=== PATIENT | female | born 1980 | race African-American/Black ===

== ENCOUNTER 2016-10-07 05:11 | Inpatient (IN) ==
[2016-10-07] MEDS ORDERED: Famotidine 20 MG/2 ML VIAL IVP PRN (05:14)
[2016-10-07] MEDS ORDERED: Naloxone 0.4 MG/ML INJ IVP PRN (05:14)
[2016-10-07] MEDS ORDERED: D5% in Lactated Ringers 1,000 ML IVC SCH (05:15)
[2016-10-07] MEDS ORDERED: PENICILLIN POTASSIUM IVPB ONE (05:17)
[2016-10-07] MEDS ORDERED: WATER IVPB ONE (05:17)
[2016-10-07] MEDS ORDERED: D5 IVPB ONE (05:17)
[2016-10-07] MEDS ORDERED: Oxytocin 20 units/ LR 1000 mL 20 UNIT/1,000 ML BAG IVC ONE ×4 (05:33→15:20)
--- NOTE | 2016-10-07 05:45 | OB/GYN History & Physical ---
Date of Encounter: 10/07/16 Time of Encounter: 04:48 Assessment and Plan (1) Active labor at term Current visit: Yes Status: Acute Patient was brought in by EMS with spontaneous rupture of membranes that occurred 10 minutes prior to arrival. Patient actively having abdominal pain, back pain and contractions at 2-3 minutes apart. On examination, patient's cervix was dilated at 7 with 80% effacement and station 0. Patient is multiparous with 4 viable births by spontaneous vaginal delivery. monitoring externally. Preparation and anticipation for spontaneous vaginal delivery. Obtained records from [facility] CHARTER BOAT OPERATOR: Patient is seen by Dr.Richard Javed. Patient was initially uncooperative with staff members and refusing to answer questions pertaining to her and medical history. labs were ordered prior to receiving records as her blood type was unknown and there was no further information available. (2) 38 weeks gestation of Current visit: Yes Status: Acute (3) Tobacco abuse disorder Current visit: Yes Status: Acute Patient currently smokes one half packs per day 18+ years. (4) Hepatitis C antibody positive in blood Current visit: Yes Status: Acute History of Present Illness Chief complaint: Labor HPI: Ms. Lundberg is a 36 year old female at 38 weeks and 6 days with a past medical history of seasonal allergies, Crohn's disease status post partial colectomy, right lower extremity cellulitis, hepatitis C, and AMA status who presents today in active labor. Patient was brought in by EMS with reported spontaneous rupture of membranes occurring 10 minutes prior to arrival to labor and delivery unit at approximately 4:30 patient was awakened by a "wet "sensation. On arrival, patient and bed were soaked with cloudy yellow fluid, and patient reported abdominal pain, back pain, pelvic pressure with contractions at 2-3 minutes apart. Patient was uncooperative with staff refusing to answer questions pertaining to her and medical history. Four live viable births all via spontaneous vaginal delivery without complication. Patient denies history of STDs or any complications with this . LMP: 01/10/2016. OB doctor: Albert Novak NSTs beginning at 36 weeks for AMA. Blood type: A positive. Antibody screen negative. GBS negative Hepatitis B surface antigen negative HIV nonreactive HPV negative Rubella immune Varicella-zoster IgG antibody immune Treponema pallidum nonreactive Chlamydia negative Medications: vitamin and iron tablets, Diclegis. Food allergies: Strawberries No known drug allergies. Patient denies alcohol or illicit drug use. Baby Girl: Ying Med Care Manager: Mitchdelisa Mom plans to bottle feed. Past Med Surg Social Fam HX - Past Medical History Medical history: no medical history Psychiatric history: no psych history - Past Surgical History Surgical History: colectomy - Social History Smoking Status: Current every day smoker Packs per day: 1.5 Smokeless Tobacco Status: No Alcohol use: none Drug use: none - Family History Mother Living Status: Still Living Hx Family Cardiac Disorders: No Hx Family Respiratory Disorders: No Hx Family Cancer: No Hx Family GI Disorders: No Hx Family Genitourinary Disorders: No Hx Family Endocrine Disorder: No Hx Family Musculoskeletal Disorders: No Hx Family Neuromuscular Disorders: No Hx Family Neurologic Disorders: No Hx Family HEENT Disorders: No Hx Family Autoimmune Disorders: No Hx Family Reproductive Disorders: No Hx Family Psychosocial Disorders: No Hx Family Medical Disorders: No Obstetrical History - Pregnancies : 5 Para: 4 Term: 4 : 0 Ab's: 0 Livin Medications and Allergies Formula Tablet 1 tab PO DAILY 10/07/16 [History] Allergies No Known Allergies Allergy (Verified 04/23/15 19:49) Review of System OB - Constitutional Constitutional ROS IM: no anorexia, no chills, no fever(s) - Nose, mouth, and throat Nose, mouth and throat: no nasal congestion, no sinus pressure, no sore throat, no throat swelling, no tongue swelling, no vertigo - Breasts Breasts: no mass, no pain, no skin changes - Cardiovascular Cardiovascular: no chest pain, no chest pain at rest, no claudication, no dyspnea, no lightheadedness, no syncope - Respiratory Respiratory: cough (Chronic dry cough), no dyspnea, no hemoptysis, no wheezing, no chest congestion, no excessive phlegm production, no pain with cough - Gastrointestinal Gastrointestinal: heartburn, nausea, vomiting, other (Crohn's disease status post partial colectomy and left lower quadrant) - Genitourinary Genitourinary: no dysuria, no flank pain, no genital lesions, no genital pruritis, no hematuria - Integumentary Integumentary: other (Right lower extremity distal anterior tibial cellulitis resolving without erythema or edema) - Psychiatric Psychiatric: anxiety, no depression - Endocrine Endocrine: fatigue, no deeping of the voice, no flushing - Hematologic/Lymphatic Hematologic/Lymphatic: no easy bleeding, no easy bruising, no lymphadenopathy - Allergic/Immunologic Allergic/Immunologic: itchy eyes, seasonal rhinorrhea, GI upset with certain foods, no tongue swelling, no throat swelling Exam - Vital Signs Vital signs: Initial Vital Signs Temp Pulse Resp BP 98 F 98 16 133/84 10/07/16 05:21 10/07/16 05:21 10/07/16 05:21 10/07/16 05:21 - Constitutional Constitutional: well developed, well nourished, average body habitus - HEENT HEENT: EOMI, PERRL, Normocephaly, Mucus Membranes Moist - Neck Neck exam: full ROM, normal inspection, supple, trachea midline - Lungs Respiratory exam: wheezes (Diffuse throughout) - Cardiovascular Cardiovascular exam: +S1, +S2 - Breasts Breast: bilateral: normal - Abdomen Abdomen: Present: bowel sounds normal, gravid, diffuse tenderness - Extremities Extremities exam: full ROM, normal capillary refill, warm, radial pulses palpable and symetrical Deep Tendon Reflex Grade: 2+ Normal - Vulva Vulva: bilateral: normal - Vagina Vagina: Present: normal moisture, discharge - Cervix Dilation: 7 Effacement: 80 Station: 0 - Uterus Uterus exam: Present: normal size, normal contour - Anus/Rectum Anus/Rectum: Present: normal perianal skin Results Result Diagrams: 10/07/16 04:45 10/07/16 04:45 All other labs normal. - VTE Reasons for not Prescribing Prophylaxis: Treatment not Indicated - Low risk for VTE
[2016-10-07 06:13] LABS: Basophils % 0.3 %; Hematocrit 35.7 % (35.3-44.9); Hemoglobin 12.1 g/dL (11.5-15.4); Immature Granulocytes % 0.7 % (0-4); Lymphocytes # 0.8 K/mcL (0.6-4.6); Lymphocytes % 11.8 %; Mean Corpuscular HGB Conc 33.9 g/dL (31.6-35.5); Mean Corpuscular Hemoglobin 27.8 pg (28.0-33.3); Mean Corpuscular Volume 82.1 fL (83.0-100.0); Mean Platelet Volume 12.1 fL (9.4-12.4); Monocytes # 0.5 K/mcL (0.0-1.3); Monocytes % 7.3 %; Neutrophils # 5.4 K/mcL (1.6-8.9); Platelet Count 220 K/mcL (140-400); Red Blood Count 4.35 M/mcL (3.82-4.97); Red Cell Distribution Width 14.9 % (11.5-14.5); Segmented Neutrophils % 79.9 %
[2016-10-07 06:14] LABS: Amphetamine Screen,Urine Negative ng/mL (Cutoff=1000); Barbiturate Screen,Urine Negative ng/mL (Cutoff=200); Benzodiazepines Screen,Urine Negative ng/mL (Cutoff=200); Cannabinoid Screen,Urine Positive ng/mL (Cutoff = 50); Cocaine Screen,Urine Negative ng/mL (Cutoff= 300); Opiate Screen,Urine Negative ng/mL (Cutoff=300); Phencyclidine Screen,Urine Negative ng/mL (Cutoff=25)
[2016-10-07] MEDS ORDERED: Ibuprofen 600 MG TABLET PO ONE (06:21)
[2016-10-07 06:24] LABS: Aspartate Amino Transferase 23 Units/L (5-34); BUN/Creatinine Ratio 8 (6-26); Calcium 8.6 mg/dL (8.6-10.8); Carbon Dioxide 18 mEq/L (19-29); Chloride 107 mEq/L (98-109); Glucose 79 mg/dL (70-99); Osmolality,Calculated 276 (280-300); Potassium 3.9 mEq/L (3.5-4.5); Sodium 135 mEq/L (136-145); eGFR For African Americans > 60 (> 60); eGFR For Non-African Americans > 60 (> 60)
--- NOTE | 2016-10-07 06:28 | OB/GYN Procedure Note ---
Delivery - Delivery Date: 10/07/16 Provider: Felicia Ye (Bob, PGY 1) Intrapartum events: meconium, precipitous labor- <3hr Delivery induction: none Delivery monitor: external FHT, external uterine Anesthesia: none Estimated Blood Loss: 150 - (s) Infant A Delivery Date: 10/07/16 Delivery Time: 06:04 Presentation: vertex Position: ZOE Route of delivery: Gender: Female Viability: Viable Pounds: 7 Ounces: 13 Weight Gram: 3550 kg at 1 minute: 8 at 5 mins: 9 Shoulder Dystocia: not encountered Specimens collected: cord blood Placenta: spontaneous Cord: 3 umbilical vessels, nuchal reduced - Repair Episiotomy: none Laceration Description: None - Complications Delivery complications: none - Disposition Mom disposition: stable in LDR [place] disposition: stable in LDR - Comments Comments: 36 year-old presented to labor and delivery via ambulance in active labor following SROM. She underwent a precipitous vaginal delivery for viable female weighing 7lbs 13oz with apgars 8 and 9. The cord was clamped and cut immediately due to non-vigorous with thick MSF. Infant was handed to nursery staff. The placenta delivered spontaneous and intact. No lacerations were noted. Mother and baby stable following procedure.
[2016-10-07 06:29] LABS: Blood Urea Nitrogen 5 mg/dL (7-20)
[2016-10-07] MEDS ORDERED: Oxytocin 20 units/ LR 1000 mL 20 UNIT/1,000 ML BAG IV SCH ×3 (07:44→17:15)
[2016-10-07] MEDS ORDERED: Acetaminophen 325 MG TABLET PO PRN (07:44)
[2016-10-07] MEDS ORDERED: Measles/Mumps/Rubella Vacc 0.5 ML VIAL SQ PRN (07:44)
[2016-10-07] MEDS: Ibuprofen 600 MG TABLET PO PRN (07:58)
[2016-10-07] MEDS ORDERED: D5 IVPB SCH (08:00)
[2016-10-07] MEDS ORDERED: WATER IVPB SCH (08:00)
[2016-10-07] MEDS ORDERED: PENICILLIN POTASSIUM IVPB SCH (08:00)
[2016-10-07] MEDS ORDERED: Methylergonovine 0.2 MG/ML AMPUL IM ONE (08:05)
[2016-10-07] MEDS ORDERED: Ringers Solution, Lactated 1,000 ML ONE ×3 (15:12→17:26)
[2016-10-07] MEDS ORDERED: *HR* HYDROmorphone 2 MG/ML SYRINGE ONE (15:17)
[2016-10-07] MEDS ORDERED: Methylergonovine 0.2 MG/ML AMPUL IM PRN (15:33)
[2016-10-07] MEDS ORDERED: 0.9 % Sodium Chloride 1,000 ML ONE (15:44)
--- NOTE | 2016-10-07 15:49 | Anesthesia Evaluation PreOp ---
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 Any Significant HX Other Medical History: Hepatic (Hep C), Other (post- Hemorrhage, retained placenta) Anesthesia History: No Prior Anesthetic Complications : No Alcohol Use: none Drug use: none Medications and Allergies Formula Tablet 1 tab PO DAILY 10/07/16 [History] Allergies No Known Allergies Allergy (Verified 04/23/15 19:49) - Meds/Allergy Pre-op Review Medications Reviewed: Yes Allergies Reviewed: Yes Beta Blockers on Current Med List: No Anesthesia Results - Labs 10/07/16 04:45 10/07/16 04:45 Anesthesia Exam O2 Sat Height 1.7 m Height 1.65 m Weight 72.8 kg Weight 76.204 kg Weight 178 kg O2 Sat by Pulse Oximetry 99 O2 Sat by Pulse Oximetry 98 Vital Signs Temp Pulse Resp BP 98 F 98 16 133/84 10/07/16 05:21 10/07/16 05:21 10/07/16 05:21 10/07/16 05:21 Vital Signs/O2 Sat, Most Current Temp Pulse Resp BP Pulse Ox 98.0 F 70 16 130/82 99 10/07/16 09:30 10/07/16 10:30 10/07/16 10:30 10/07/16 09:30 10/07/16 09:30 Height: 5'7'' Weight: 160# NPO (# of Hours): ate lunch at 12 noon Pain Scale: 0 Pain Scale Used: Numeric (1 - 10) (lunch) Anesthesia Assess/Plan ASA Score: 3 Modified Rafaela Scale for Level of Consciousness: Cooperative, oriented, and tranquil Anesthetic Plan: General Autologous Blood: Yes Monitoring Plan: Standard Monitors Recovery Plan: PACU
[2016-10-07] MEDS ORDERED: *HR* Succinylcholine 200 MG/10 ML VIAL IVP ONE (16:00)
[2016-10-07] MEDS ORDERED: *HR* FentaNYL (PF) 100 MCG/2 ML VIAL ONE (16:00)
[2016-10-07] MEDS ORDERED: *HR* Propofol 200 MG/20 ML VIAL IVP ONE (16:00)
[2016-10-07] MEDS ORDERED: Lidocaine -MPF 2% 5 ML VIAL INFILT ONE (16:00)
[2016-10-07 16:08] LABS: Basophils % 0.3 %; Eosinophils % 0.3 %; Hematocrit 28.3 % (35.3-44.9); Immature Granulocytes % 0.9 % (0-4); Lymphocytes # 1.2 K/mcL (0.6-4.6); Lymphocytes % 16.3 %; Mean Corpuscular HGB Conc 34.3 g/dL (31.6-35.5); Mean Corpuscular Hemoglobin 28.5 pg (28.0-33.3); Mean Corpuscular Volume 83.2 fL (83.0-100.0); Mean Platelet Volume 11.6 fL (9.4-12.4); Monocytes # 0.7 K/mcL (0.0-1.3); Monocytes % 8.7 %; Neutrophils # 5.5 K/mcL (1.6-8.9); Platelet Count 205 K/mcL (140-400); Red Cell Distribution Width 15.1 % (11.5-14.5); Segmented Neutrophils % 73.5 %
[2016-10-07 16:14] LABS: Hemoglobin 9.7 g/dL (11.5-15.4)
[2016-10-07] MEDS ORDERED: Dexamethasone 4 MG/ML VIAL ONE (16:23)
[2016-10-07] MEDS ORDERED: Ondansetron 4 MG/2 ML VIAL ONE (16:23)
[2016-10-07] MEDS ORDERED: *HR* Phenylephrine 10 MG/ML VIAL ONE (16:25)
[2016-10-07] MEDS ORDERED: EPHEDrine 50 MG/ML VIAL ONE (16:33)
[2016-10-07] MEDS ORDERED: Ketorolac 30 MG/ML VIAL ONE (16:41)
[2016-10-07] MEDS ORDERED: *HR* HYDROcodone/Acet 5/325 mg TABLET PO PRN ×2 (17:10→17:46)
--- NOTE | 2016-10-07 17:15 | OB/GYN Procedure Note ---
OB-FIRER LOW PRESSURE: Procedure - Diagnosis Date of procedure: 10/07/16 Pre-op diagnosis: retained placenta Post-op diagnosis: same - Procedure Procedure: Exam under anesthesia. Removal of retained placenta. Surgeon: Darrin Sarmiento Noise Abatement Engineer: Junior Barrios Anesthesia provider: Timothy Farnsworth Anesthesia Type: General Estimated blood loss (cc): 50 Fluids: crystalloid Procedure Complications: none Specimens collected: remnants of retained placenta Disposition: PACU Findings: Uterus was enlarged to 10 - 12 weeks size. Cervical os dilated 4-5cm. Narrative: Patient was taken to the operating room. After satisfactory anesthesia was achieved, patient was placed in dorsal lithotomy position and prepped and draped in the usual manner. After appropriate timeout, anterior lip of the cervix was visualized with retractors. Cervix was grasped with single toothed tenaculum. Curettage was performed. Retained placenta was removed and sent to pathology for analysis. After assurance of hemostasis, tenaculum was removed. Patient did well and was taken to recovery in satisfactory condition. Counts were correct.
[2016-10-07] MEDS: *HR* HYDROmorphone (PF) 1 MG/ML SYRINGE IVP PRN ×2 (17:33→18:10)
--- NOTE | 2016-10-07 18:11 | Anesthesia Evaluation Post Op ---
Date of Encounter: 10/07/16 Time of Encounter: 18:05 - Vital Signs Vital Signs: 3 Vital Signs Time 1805 BP 138/94 Pulse 80 Resp 14 O2 Sat 100 - Lungs Lungs: Clear Ascult./Percussion - Airway Airway: Non-obstructed - Cardiovascular Regular Rate - Mental Status Mental Status: Alert & Oriented, Answers Appropriately - Pain Pain Scale: 8 (pain meds given) Pain Scale used: Numeric (1 - 10) - Nausea Vomiting Nausea Vomiting: Not Present - Hydration Hydration: NPO Notes: 10/07/16 18:10 patient resting quietly, drowsy, does not appear in distress - Discharge PostOp Status: Transfer Patient to floor
[2016-10-08] MEDS: Ibuprofen 600 MG TABLET PO PRN ×2 (02:12→11:10)
[2016-10-08 06:14] LABS: Basophils % 0.1 %; Eosinophils # 0.1 K/mcL (0.0-0.6); Eosinophils % 0.7 %; Hematocrit 19.7 % (35.3-44.9); Immature Granulocytes % 0.7 % (0-4); Lymphocytes % 17.2 %; Mean Corpuscular HGB Conc 34.5 g/dL (31.6-35.5); Mean Corpuscular Hemoglobin 28.6 pg (28.0-33.3); Mean Corpuscular Volume 82.8 fL (83.0-100.0); Mean Platelet Volume 11.9 fL (9.4-12.4); Monocytes # 1.1 K/mcL (0.0-1.3); Monocytes % 9.4 %; Platelet Count 162 K/mcL (140-400); Red Blood Count 2.38 M/mcL (3.82-4.97); Red Cell Distribution Width 15.2 % (11.5-14.5); Segmented Neutrophils % 71.9 %
[2016-10-08 06:15] LABS: Hemoglobin 6.8 g/dL (11.5-15.4); Lymphocytes # 2.1 K/mcL (0.6-4.6); Neutrophils # 8.6 K/mcL (1.6-8.9)
[2016-10-08] MEDS ORDERED: 0.9 % Sodium Chloride 250 ML IVC PRN (08:33)
[2016-10-08] MEDS ORDERED: 0.9 % Sodium Chloride 1,000 ML IVC PRN (09:02)
[2016-10-08] MEDS: Prenatal Vit/FA 1 EACH TABLET PO SCH (09:04)
--- NOTE | 2016-10-08 13:20 | OB/GYN Progress Note ---
Date of Encounter: 10/08/16 Time of Encounter: 13:18 - Assessment and Plan (1) Tobacco abuse disorder Current Visit: Yes Status: Acute Patient currently smokes one half packs per day 18+ years. (2) Hepatitis C antibody positive in blood Current Visit: Yes Status: Acute (3) Status post vaginal delivery Current Visit: Yes Status: Acute Plan to remove velez today once pt ambulating. Anticipate discharge home tomorrow. (4) hemorrhage Current Visit: Yes Status: Acute Pt currently receiving 2 units PRBCs. Will repeat labs 6 hours after completion. Pt denies sx anemia at this time. Qualifiers: hemorrhage type: secondary hemorrhage Qualified Code( s): O72.2 - Delayed and secondary hemorrhage Subjective - Subjective Interval history: Pt resting comfortably in bed without complaints. Velez in place with good UOP. She denies dizziness or other complaints. Lochia light Patient reports: appetite normal, pain well controlled [place]: doing well Objective - Latest Vital Signs Latest vital signs: Vital Signs Temp Pulse Pulse Resp BP Pulse Ox 10/08/16 10:04 97.9 F 84 18 119/17 99 10/08/16 09:49 97.9 F 82 18 10/08/16 08:43 97.5 F L 74 16 100/64 10/08/16 02:10 84 14 10/07/16 21:55 97.9 F 86 86 14 127/86 100 10/07/16 20:43 97.5 F L 90 90 14 133/84 100 10/07/16 19:45 97.4 F L 85 85 14 137/91 100 10/07/16 19:00 97.3 F L 96 16 146/96 100 10/07/16 18:55 97.3 F L 96 96 16 146/96 100 10/07/16 18:30 97.5 F L 83 16 136/91 100 10/07/16 18:10 80 12 139/99 100 10/07/16 18:00 84 12 138/94 100 10/07/16 17:45 88 16 134/96 100 10/07/16 17:33 101 16 129/93 99 10/07/16 17:14 100 16 127/95 97 10/07/16 16:59 97.4 F L 114 16 131/81 99 Intake and Output 10/07/16 10/08/1617 23:59 07:59 15:59 Intake Total 1820 / 1820 1040 / 1040 Output Total 2700 / 2700 Balance 1821 / 1821 -1660 / -1660 Intake: IV Fluids 1101 / 1101 Pitocin 20 unit In 1,000 1000 / 1000 ml As IVC .STK-MED ONE Rx #:[id number] Oral 720 / 720 740 / 740 Blood Product 300 / 300 Rbcs Leuko Poor As-1 300 / 300 Unit [id number] Output: Urine 1200 / 1200 Catheter 1500 / 1500 Other: Meal Dinner Breakfast Percent of Meal Consumed 75% 100% - Exam Lungs: bilateral: normal Chest: Normal S1, Normal S2 Extremities: Present: normal Abdomen: Present: soft Uterus: Present: firm - Labs Labs: Laboratory Results - last 24 hr 10/07/16 10/07/16 10/08/16 15:55 15:55 05:54 WBC 7.4 11.9 H D RBC 3.40 L 2.38 L Hgb 9.7 L D 6.8 L D Hct 28.3 L 19.7 L MCV 83.2 82.8 L MCH 28.5 28.6 MCHC 34.3 34.5 RDW 15.1 H 15.2 H Plt Count 205 162 MPV 11.6 11.9 Immature Gran % 0.9 0.7 Seg Neutrophils % 73.5 71.9 Lymphocytes % 16.3 17.2 Monocytes % 8.7 9.4 Eosinophils % 0.3 0.7 Basophils % 0.3 0.1 Neutrophils # 5.5 8.6 Lymphocytes # 1.2 2.1 Monocytes # 0.7 1.1 Eosinophils # 0.0 0.1 Basophils # 0.0 0.0 Blood Type A POSITIVE Antibody Screen NEGATIVE Crossmatch See Detail
[2016-10-09] MEDS: Prenatal Vit/FA 1 EACH TABLET PO SCH (08:03)
[2016-10-09] MEDS: Ibuprofen 600 MG TABLET PO PRN (08:04)
[2016-10-09 08:17] LABS: Hematocrit 26.3 % (35.3-44.9); Mean Corpuscular HGB Conc 33.8 g/dL (31.6-35.5); Mean Corpuscular Hemoglobin 28.3 pg (28.0-33.3); Mean Corpuscular Volume 83.8 fL (83.0-100.0); Mean Platelet Volume 11.5 fL (9.4-12.4); Platelet Count 215 K/mcL (140-400); Red Blood Count 3.14 M/mcL (3.82-4.97); Red Cell Distribution Width 15.3 % (11.5-14.5)
[2016-10-09 08:18] LABS: Hemoglobin 8.9 g/dL (11.5-15.4)
[2016-10-09 08:24] VITALS: BP 121/82
--- NOTE | 2016-10-09 09:01 | Discharge Summary ---
Date of Encounter: 10/09/16 Time of Encounter: 08:57 - Discharge Diagnosis (1) Status post vaginal delivery Priority: Primary Status: Resolved Comments: Patient is doing well day 2 s/p vaginal delivery. Complicated by post hemorrhage, resloved with EUA and D&C for retained placenta. Hb yesterday 6.8, patient was asymptomatic. Received 2u PRBC. Hb today 8.0. Patient reports mild spotting today. Denies abdominal/pelvic pain. Appetite normal. No complaints re: bowel movement or urination. She states she, "feels completely normal." She is bottle feeding; baby is doing well. (2) hemorrhage Priority: Secondary Status: Resolved Comments: Resolved s/p EUA and D&C 10/07/16. Qualifiers: hemorrhage type: secondary hemorrhage Qualified Code( s): O72.2 - Delayed and secondary hemorrhage (3) Hepatitis C antibody positive in blood Priority: Secondary Status: Chronic (4) Tobacco abuse disorder Priority: Secondary Status: Chronic - Discharge Medications Home Medications: Formula Tablet 1 tab PO DAILY 10/07/16 [History] Allergies/Adverse Reactions: Allergies No Known Allergies Allergy (Verified 04/23/15 19:49) Data Procedures and tests throughout hospitalization: Laboratory Tests 10/07/16 10/07/16 10/07/16 04:45 04:45 04:45 WBC 6.7 RBC 4.35 Hgb 12.1 Hct 35.7 MCV 82.1 L MCH 27.8 L MCHC 33.9 RDW 14.9 H Plt Count 220 MPV 12.1 Immature Gran % 0.7 Seg Neutrophils % 79.9 Lymphocytes % 11.8 Monocytes % 7.3 Eosinophils % 0.0 Basophils % 0.3 Neutrophils # 5.4 Lymphocytes # 0.8 Monocytes # 0.5 Eosinophils # 0.0 Basophils # 0.0 Sodium 135 L Potassium 3.9 Chloride 107 Carbon Dioxide 18 L BUN 5 L Creatinine 0.64 Est GFR ( Amer) > 60 Est GFR (Non-Af Amer) > 60 BUN/Creatinine Ratio 8 Glucose 79 Calculated Osmolality 276 L Calcium 8.6 AST 23 Urine Opiates Screen Ur Barbiturates Screen Ur Phencyclidine Scrn Ur Amphetamines Screen U Benzodiazepines Scrn Urine Cocaine Screen U Marijuana (THC) Screen Hep Bs Antigen Nonreactive Blood Type Antibody Screen Crossmatch 10/07/16 10/07/16 10/07/16 04:45 05:09 15:55 WBC 7.4 RBC 3.40 L Hgb 9.7 L D Hct 28.3 L MCV 83.2 MCH 28.5 MCHC 34.3 RDW 15.1 H Plt Count 205 MPV 11.6 Immature Gran % 0.9 Seg Neutrophils % 73.5 Lymphocytes % 16.3 Monocytes % 8.7 Eosinophils % 0.3 Basophils % 0.3 Neutrophils # 5.5 Lymphocytes # 1.2 Monocytes # 0.7 Eosinophils # 0.0 Basophils # 0.0 Sodium Potassium Chloride Carbon Dioxide BUN Creatinine Est GFR ( Amer) Est GFR (Non-Af Amer) BUN/Creatinine Ratio Glucose Calculated Osmolality Calcium AST Urine Opiates Screen Negative Ur Barbiturates Screen Negative Ur Phencyclidine Scrn Negative Ur Amphetamines Screen Negative U Benzodiazepines Scrn Negative Urine Cocaine Screen Negative U Marijuana (THC) Screen Positive H Hep Bs Antigen Blood Type A POSITIVE Antibody Screen NEGATIVE Crossmatch 10/07/16 10/08/16 10/09/16 15:55 05:54 08:02 WBC 11.9 H D 9.0 RBC 2.38 L 3.14 L Hgb 6.8 L D 8.9 L D Hct 19.7 L 26.3 L MCV 82.8 L 83.8 MCH 28.6 28.3 MCHC 34.5 33.8 RDW 15.2 H 15.3 H Plt Count 162 215 MPV 11.9 11.5 Immature Gran % 0.7 Seg Neutrophils % 71.9 Lymphocytes % 17.2 Monocytes % 9.4 Eosinophils % 0.7 Basophils % 0.1 Neutrophils # 8.6 Lymphocytes # 2.1 Monocytes # 1.1 Eosinophils # 0.1 Basophils # 0.0 Sodium Potassium Chloride Carbon Dioxide BUN Creatinine Est GFR ( Amer) Est GFR (Non-Af Amer) BUN/Creatinine Ratio Glucose Calculated Osmolality Calcium AST Urine Opiates Screen Ur Barbiturates Screen Ur Phencyclidine Scrn Ur Amphetamines Screen U Benzodiazepines Scrn Urine Cocaine Screen U Marijuana (THC) Screen Hep Bs Antigen Blood Type A POSITIVE Antibody Screen NEGATIVE Crossmatch See Detail Labs on day of discharge: Labs from last 24 hours 10/09/16 10/07/16 08:02 15:55 WBC 9.0 RBC 3.14 L Hgb 8.9 L D Hct 26.3 L MCV 83.8 MCH 28.3 MCHC 33.8 RDW 15.3 H Plt Count 215 MPV 11.5 Blood Type A POSITIVE Antibody Screen NEGATIVE Crossmatch See Detail Date of admission: 10/07/16 05:11 Primary care physician: Charly Iraheta MD Consults: 10/07/16 07:44 Consult to Wire Coating Operator Metal [CONS] Routine Reason for SW Consult: PNC with outside provider, hepatitis C Discharging clinician: Junior Barrios Anticipated date of discharge: 10/09/16 - Patient Status Disposition: Home, Self-Care Condition: Good Functional capacity at discharge: independent ambulation Overall status at discharge: patient is back to baseline - Discharge Instructions Instructions: Vaginal Delivery (DC) Follow Up With: Charly Iraheta MD [Primary Care Provider] - Additional Instructions: Follow-up with your primary OB in 4 weeks or sooner if needed. - Diet and Activity Activity: resume usual activities as tolerated Diet: advance to your usual diet Hospital Course Reason for admission: active labor Delivery: Episiotomy: none Laceration: none Other procedures: other (EUA, D&C), transfusion complications: retained placenta, transfusion Discharge diagnosis: IUP at term delivered [place] baby: female Hospital course: Ms. Lundberg arrived in spontaneous labor. Delivered vaginally without intrpartum complication. Post complicated with hemorrhage. Patient unable to tolerate bedside exam. Taken to OR for EUA and D&C. Post hemorrhage resolved. Her Hb ws 6.8. improved to 8.0 after 2u PRBC. Discharged home. Time spent discussing smoking cessation with patient: 3 to 10 minutes Time Attestation: Total time spent providing and/or coordinating discharge services: Time Spent: Less than 30 minutes Exam - Constitutional Vitals: Temp Pulse Resp BP Pulse Ox 98.3 F 85 16 121/82 98 10/09/16 08:23 10/09/16 08:23 10/09/16 08:23 10/09/16 08:23 10/09/16 08:23 General appearance IM: A&O X 3 - Respiratory Respiratory exam: Present: CTAB - Cardiovascular Cardiovascular exam IM: Present: RRR, +S1, +S2 - GI/Abdominal GI/Abdominal exam IM: soft, no peritoneal signs - Uterine Tone: Firm Uterus Position: 2 Fingers Below Umbilicus - Extremities Exam Extremities exam IM: Present: full ROM, normal capillary refill - Neurological Exam Neurological exam: alert, normal gait, oriented X3
[2016-10-11 07:45] LABS: Herpes Simplex PCR Qual Res NOT DETECTED
== END 2016-10-09 12:13 | disposition home or self-care (01) | DRG 541 ==
LOC: 1NENULAB 05:11 → 1NENUOBS 09:24
PROVIDERS: ADMIT Registered Nurse; ATTEND Registered Nurse